=== PATIENT | female | born 1985 | race Caucasian/White ===

== ENCOUNTER 2016-09-16 01:23 | Emergency (ER) | payer MEDICAID ==
[~2016-09-16] VITALS: Ht 160 cm; Wt 71.5 kg
[2016-09-16 01:26] VITALS: Ht 160 cm; Wt 71.5 kg
[2016-09-16] MEDS ORDERED: SOD CHLORIDE 0.9% 1,000 ML IV STA (02:50)
[2016-09-16 03:41] LABS: ADD SCAN DIFF NO
[2016-09-16 03:46] LABS: BASOPHILS % 0.3 % (0.0-2.0); EOSINOPHILS # 0.1 10^3/ul (0.0-0.5); HEMATOCRIT 40.9 % (37.0-47.0); HEMOGLOBIN 13.6 g/dl (12.0-16.0); LYMPHOCYTES # 3.6 10^3/ul (0.8-2.9); LYMPHOCYTES % 40.5 % (15.0-51.0); MEAN CORPUSCULAR HEMOGLOBIN 27.1 pg (29.0-33.0); MEAN CORPUSCULAR HGB CONC 33.3 g/dl (32.0-37.0); MEAN CORPUSCULAR VOLUME 81.5 fl (82.0-101.0); MEAN PLATELET VOLUME 9.9 fl (7.4-10.4); MONOCYTE # 0.6 10^3/ul (0.3-0.9); MONOCYTES % 6.9 % (0.0-11.0); NEUTROPHIL # 4.5 10^3/ul (1.6-7.5); PLATELET COUNT 290 10^3/UL (140-415); RED BLOOD COUNT 5.02 10^6/ul (4.20-5.40); RED CELL DISTRIBUTION WIDTH 13.6 % (11.5-14.5); WHITE BLOOD COUNT 8.8 10^3/ul (4.8-10.8)
[2016-09-16 03:59] LABS: ADD UMIC YES; URINE BILIRUBIN (Dip) NEGATIVE (NEGATIVE); URINE BLOOD (Dip) 2+ (NEGATIVE); URINE COLOR LT. YELLOW (YELLOW); URINE GLUCOSE (Dip) NEGATIVE (NEGATIVE); URINE KETONES (Dip) NEGATIVE (NEGATIVE); URINE LEUKOCYTE ESTERASE (Dip) 3+ (NEGATIVE); URINE NITRITE (Dip) NEGATIVE (NEGATIVE); URINE TOTAL PROTEIN (Dip) NEGATIVE (NEGATIVE); URINE UROBILINOGEN (Dip) 0.2 E.U./dL (0.1-1.0)
[2016-09-16 04:14] LABS: SQUAMOUS EPITHELIAL CELL,UR MODERATE
[2016-09-16 04:15] LABS: BACTERIA,URINE MANY
--- NOTE | 2016-09-16 05:52 | RADRPT ---
PROCEDURE: US OB. CLINICAL INDICATION: Vaginal bleeding. patient. TECHNIQUE: Transabdominal and transvaginal views of the pelvis are available for review. COMPARISON: No prior studies are available for comparison. FINDINGS: There is a single live intrauterine gestation. [place]-rump length:5.64 cm heart rate:158 bpm Gestational sac: 5.45 cm Ultrasound estimated gestational age:12 wk 2 days. A 14 mm hypoechoic area was seen inferior to the gestational sac consistent with a small subchorioni c hemorrhage. The right ovary was not seen. The left ovary measures 3.6 x 2.2 x 2.7 cm and was unremarkable in ap pearance with color and pulse wave Doppler flow documented. There is no free fluid. IMPRESSION: Single live intrauterine with an estimated gestational age of 12 weeks and 2 days. Small subchorionic hemorrhage.. RPTAT: HLBE Physician Jenni Date Time Electronically viewed and signed by Ramona Maloney Physician on 09/16/2016 05:52 TERRI/
[2016-09-16] MEDS ORDERED: NITR-58 PO (06:13)
--- NOTE | 2016-09-20 03:37 | ERA ---
ER Documentation Chief Complaint Date/Time DATE: 09/20/16 TIME: 03:35 Chief Complaint 12 wks , vag bleeding w/ pelvic pain HPI Patient is 31-year-old female who is 12 weeks . Patient has had left lower quadrant pain has been getting worse over the past 2 weeks and says increased to 7 out of 10. Patient experienced more blood in the urine. Patient denies dysuria or abdominal pain. Patient denies vaginal discharge or bleeding. ROS All systems reviewed and are negative except as per history of present illness. Medications Home Meds Active Scripts Nitrofurantoin Monohyd Macrocr* (Macrobid*) 100 Mg Capsr, 100 MG PO BID for 10 Days, CAP Prov:ROSY HINDS PA-C 09/16/16 Allergies Allergies: Coded Allergies: No Known Allergy (Verified , 01/31/09) PMhx/Soc Medical and Surgical Hx: pt denies Medical Hx, pt denies Surgical Hx History of Surgery: No Anesthesia Reaction: No Hx Neurological Disorder: No Hx Respiratory Disorders: No Hx Cardiac Disorders: No Hx Psychiatric Problems: No Hx Miscellaneous Medical Probl: No Hx Alcohol Use: No Hx Substance Use: No Hx Tobacco Use: No Physical Exam Physical Exam Const: Well-appearing 31-year-old female who is 12 weeks in no acute distress. Head: Atraumatic Eyes: Normal Conjunctiva ENT: Normal External Ears, Nose and Mouth. Neck: Full range of motion..~ No meningismus. Resp: Clear to auscultation bilaterally Cardio: Regular rate and rhythm, no murmurs Abd: Soft, non tender, non distended. Normal bowel sounds. Fundus is appropriate height. Skin: No petechiae or rashes Back: No midline or flank tenderness Ext: No cyanosis, or edema Neur: Awake and alert Psych: Normal Mood and Affect Result Diagram: 09/16/16 0320 Results 24 hrs Laboratory Tests Test 09/16/16 03:20 White Blood Count 8.810^3/ul Red Blood Count 5.0210^6/ul Hemoglobin 13.6g/dl Hematocrit 40.9% Mean Corpuscular Volume 81.5fl Mean Corpuscular Hemoglobin 27.1pg Mean Corpuscular Hemoglobin Concent 33.3g/dl Red Cell Distribution Width 13.6% Platelet Count 05616^3/UL Mean Platelet Volume 9.9fl Neutrophils % 51.0% Lymphocytes % 40.5% Monocytes % 6.9% Eosinophils % 1.0% Basophils % 0.3% Nucleated Red Blood Cells % 0.0/100WBC Neutrophils # 4.510^3/ul Lymphocytes # 3.610^3/ul Monocytes # 0.610^3/ul Eosinophils # 0.110^3/ul Basophils # 0.010^3/ul Nucleated Red Blood Cells # 0.010^3/ul Urine Color LT. YELLOW Urine Clarity CLEAR Urine pH 5.5 Urine Specific [place] 1.025 Urine Ketones NEGATIVE Urine Nitrite NEGATIVE Urine Bilirubin NEGATIVE Urine Urobilinogen 0.2 E.U./dL Urine Leukocyte Esterase 3+ Urine Microscopic RBC 5-10/HPF Urine Microscopic WBC 10-25/HPF Urine Squamous Epithelial Cells MODERATE Urine Bacteria MANY Urine Hemoglobin 2+ Urine Glucose NEGATIVE% Urine Total Protein NEGATIVE Beta HCG, Quantitative 926543.0mIU/ml Current Medications Medications (Trade) Dose Ordered Sig/Roberto Carlos Route PRN Reason Start Time Stop Time Status Last Admin Dose Admin Sodium Chloride (NS) 1,000 ml @ 1,000 mls/hr Q1H STAT IV 09/16/16 02:50 09/16/16 03:49 DC 09/16/16 03:32 Procedures/MDM Patient is 4 weeks and complains of hematuria and possible vaginal bleeding. This reason went ahead and first trimester workup. Urine results showed infection. We will treat with Macrobid 100 mg twice a day for 10 days. Have spoke to the patient and she understands her current condition and the importance of follow-up. Patient is stable and will be discharged at this time. I have spoken to my attending and he agrees with assessment and plan. Departure Diagnosis: Primary Impression: Urinary tract infection during Qualified Code: O23.41 - Urinary tract infection during , first trimester Condition: Stable Patient Instructions: Understanding Urinary Tract Infections (UTIs) Additional Instructions: Seguimiento con Ginecl[facility] en los prximos mercado 1-3. Impresin de laboratorios incluyendo nivel de GCH beta fue dado a usted. Presentan al Gine[facility] hilaria visita de seguimiento para los valores de repeticin posible. Volver el servicio de urgencias inmediatamente si los sntomas empeoran o cambiaran. Si usted tiene alguna pregunta con respecto a medicamentos, pedir zuniga farmacutico o a nosotros antes de salir. Producirse reacciones adversas mientras est tomando leonila medicamentos, suspender el tratamiento y regresar a la lionel de emergencias inmediatamente. [place] leonila medicamentos barbra lo indique y completar el curso entero de tratamiento. ROSY HINDS PA-C September 20, 2016 03:37
== END 2016-09-16 07:00 | disposition home or self-care (01) ==
LOC: FTE 01:23
DX: O23.41 Unspecified infection of urinary tract in pregnancy, first trimester (principal); R10.2 Pelvic and perineal pain; Z3A.12 12 weeks gestation of pregnancy
CPT/HCPCS: 36415; 76801; 81001; 84702; 85025; 86900; 86901; J7030; Z7502; 81003

== ENCOUNTER 2017-02-02 21:49 | Outpatient (CLI) | payer MEDICAID ==
[~2017-02-02] VITALS: Ht 151.1 cm; Wt 78.5 kg
[~2017-02-02 21:49] MED LIST: NITR-58 PO
--- NOTE | 2017-02-02 22:47 | RADRPT ---
PROCEDURE: US biophysical profile. CLINICAL INDICATION: Decreased motion. TECHNIQUE: Multiple sonographic images of the uterus were obtained. The images were revi ewed on a PACS workstation. COMPARISON: No prior studies are available for comparison. FINDINGS: There is a single live intrauterine gestation. heart rate is 152 beats per minute. The position is cephalic. The placenta is anterior grade II with no abruption or previa. The WALTER is 8.7 cm. (Normal = 5-20 cm.) Breathing Movement: 2 Gross Body Movement: 2 Tone: 2 Qualitative Amniotic Fluid Volume: 2 TOTAL: 8 IMPRESSION: 1. The biophysical score is 8/8. RPTAT: QQ .Moise Lopez MD, MD Date Time Electronically viewed and signed by .Moise Lopez MD, on 02/02/2017 22:46 .R/
[2017-02-02] MEDS ORDERED: CALC-516 PO (23:18)
[2017-02-02] MEDS ORDERED: PREN-6 PO (23:18)
[2017-02-02 23:21] VITALS: BP 110/62; PULSE 88; RESP 18
--- NOTE | 2017-02-03 00:03 | PN ---
Triage Information Date/Time Reason for visit: DFM Weeks of Gestation 32w /Para Objective Vital Signs Date Time Temp Pulse Resp B/P Pulse Ox O2 Delivery O2 Flow Rate FiO2 02/02/17 23:21 98.6 88 18 110/62 Room Air Heart Rate Comments reactive Exam Tocometer: occasional UC Results/Medications Imaging Results BPP 8/8, WALTER 8.7cm Disposition: Discharge Assessment/Plan 31 y/o at 32 weeks with dfm -ptl precautions -repeat WALTER in 3 days -f/u with OB SUZANNE SORIA Feb 03, 2017 00:03
--- NOTE | 2017-02-03 00:19 | TRIAGE ---
OB Triage Datetime Report Generated by CPN: 02/03/2017 00:19 Datetime: 02/03/2017 00:13 Stage of : OB Triage Datetime: 02/02/2017 23:39 Labor Evaluation Monitor Mode: External Heart Rate Monitor Mode: External US Comments: New U/S monitor appliedpplied Datetime: 02/02/2017 23:30 Stage of : OB Triage Comments: U/S monitor not capturing fhts. Will change Datetime: 02/02/2017 23:26 Time of Arrival: 02/02/2017 21:42 EGA: 32.4 Arrived By: Wheelchair Arrived From: [facility] Office Chief Complaint: DFM Movement: Decreased Contractions: Denies/Absent Rupture of Membranes: Denies Vaginal Bleeding: None Vaginal Discharge: Denies Recent Sexual Intercouse: Denies Abdominal Trauma: Not Applicable Patient Complaints: Other Time Provider Notified: 02/02/2017 22:10 Provider Notified: UAJE Initial Plan: VS, EFM, BPP, AF, PO HYDRATION Datetime: 02/02/2017 23:15 Heart Rate Monitor Mode: External US Datetime: 02/02/2017 23:10 Heart Rate Monitor Mode: External US Datetime: 02/02/2017 23:08 Heart Rate Monitor Mode: External US Datetime: 02/02/2017 22:32 Stage of : OB Triage Datetime: 02/02/2017 22:27 Heart Rate Monitor Mode: External US Datetime: 02/02/2017 22:16 Stage of : OB Triage Datetime: 02/02/2017 22:01 Assessment Type: Triage Maternal Assessment Level of Consciousness: Fully Conscious DTR's/Clonus: DTRs 2+; No Clonus Headache: Denies Blurred Vision: No Respiratory Effort: Unlabored Breath Sounds, Left: Clear and Equal Breath Sounds, Right: Clear and Equal Nausea/Vomiting: Denies RUQ Epigastric Pain: Denies Lower Extremities Edema: None Degree: None Upper Extremities Edema: None Degree: None Facial Edema: None Fall Risk Assessment History of Falling: (0) No Secondary Diagnosis: (15) Yes (Annotations: GDM) Ambulatory Aid: (0) Bedrest/Nurse Assist IV Therapy: (0) No Gait: (0) Normal/Bedrest/Immobile Mental Status: (0) Oriented to Own Ability Fall Score: 15 Fall Risk Score Definition: No Risk: No action required Datetime: 02/02/2017 21:57 Stage of : OB Triage Labor Evaluation Monitor Mode: External Contraction Comments: Applied Heart Rate Monitor Mode: External US Comments: Applied
== END 2017-02-03 00:25 | disposition home or self-care (01) ==
LOC: OBT 21:49 → L-D 21:51 → OBT 02-03 00:25
PROVIDERS: ATTEND Obstetrics & Gynecology
DX: O36.8130 Decreased fetal movements, third trimester, not applicable or unspecified (principal); Z3A.32 32 weeks gestation of pregnancy
CPT/HCPCS: 76818

== ENCOUNTER 2017-02-05 13:32 | Outpatient (CLI) | payer MEDICAID ==
[~2017-02-05] VITALS: Ht 152.4 cm; Wt 79.2 kg
[~2017-02-05 13:32] MED LIST changes: +CALC-516 PO; +PREN-6 PO
[2017-02-05 13:40] VITALS: BP 119/56; PULSE 80; Ht 152.4 cm; Wt 79.2 kg
--- NOTE | 2017-02-05 14:39 | RADRPT ---
PROCEDURE: US OB biophysical profile. CLINICAL INDICATION: decreased movements TECHNIQUE: Multiple sonographic images of the pelvis were obtained. The images were reviewed on a PACS workstation. COMPARISON: US PELVIS 02/02/2017 FINDINGS: There is a single viable intrauterine gestation. Cardiac activity is present with 140 beats per min [place]. There is a vertex presentation. The placenta is anterior. There is no evidence of placental abruption. There is a normal amount of amniotic fluid with an WALTER = 11.8 cm. Biophysical profile: movement 2/2 tone 2/2. breathing 2/2 WALTER 2/2 Total 12/12 RPTAT: AA . IMPRESSION: Normal biophysical profile. . .Deon Mckeon MD, MD Date Time Electronically viewed and signed by .Deon Mckeon MD, MD on 02/05/2017 14:38 .S/
--- NOTE | 2017-02-05 18:56 | QN ---
Documentation Comment iup 33 weeks DFM vss nst reacitve us wnl a/p iup 33 weeks DFM reesoved dc home SY JENSEN MD Feb 05, 2017 18:56
--- NOTE | 2017-02-05 19:09 | TRIAGE ---
OB Triage Datetime Report Generated by CPN: 02/05/2017 19:09 Datetime: 02/05/2017 15:50 Stage of : OB Triage Datetime: 02/05/2017 15:47 Stage of : OB Triage Datetime: 02/05/2017 15:39 Labor Evaluation Frequency: 0 Monitor Mode: External Pattern: Normal: <= 5 Contractions in 10 Minutes Resting Tone [place]: Relaxed Heart Rate FHR Baseline Rate: 135 Monitor Mode: External US Variability: Moderate 6-25 bpm Accelerations: 10X10 Decelerations: None Category: Category I Pain Assessment Pain Scale: 0 Pain Presence: None/Denies Pain Type: N/A Pain Goal: 3 Pain Relief Measures: Comfort Measures Datetime: 02/05/2017 15:16 Stage of : OB Triage Datetime: 02/05/2017 14:40 Labor Evaluation Frequency: 0 Monitor Mode: External Resting Tone [place]: Relaxed Heart Rate FHR Baseline Rate: 135 Monitor Mode: External US Variability: Moderate 6-25 bpm Accelerations: 10X10 Decelerations: None Category: Category I Pain Assessment Pain Scale: 0 Pain Presence: None/Denies Pain Goal: 3 Pain Relief Measures: Comfort Measures Datetime: 02/05/2017 14:01 Stage of : OB Triage Datetime: 02/05/2017 13:37 Stage of : OB Triage Assessment Type: Triage Maternal Assessment Level of Consciousness: Fully Conscious DTR's/Clonus: DTRs 2+; No Clonus Headache: Denies Blurred Vision: No Respiratory Effort: Unlabored; Regular Rhythm; Equal Expansion Breath Sounds, Left: Clear and Equal Breath Sounds, Right: Clear and Equal Nausea/Vomiting: Denies RUQ Epigastric Pain: Denies Facial Edema: None Temperature Route: Axillary Fall Risk Assessment History of Falling: (0) No Secondary Diagnosis: (0) No Ambulatory Aid: (0) Bedrest/Nurse Assist IV Therapy: (0) No Gait: (0) Normal/Bedrest/Immobile Mental Status: (0) Oriented to Own Ability Fall Score: 0 Fall Risk Score Definition: No Risk: No action required Labor Evaluation Frequency: 0 Monitor Mode: External Resting Tone [place]: Relaxed Heart Rate FHR Baseline Rate: 140 Monitor Mode: External US Variability: Moderate 6-25 bpm Decelerations: None Category: Category I Pain Assessment Pain Scale: 0 Pain Presence: None/Denies Pain Type: N/A Pain Goal: 3 Pain Relief Measures: Comfort Measures Datetime: 02/05/2017 13:36 Time of Arrival: 02/05/2017 13:15 EGA: 33.0 Arrived By: Ambulatory Arrived From: Home Chief Complaint: F/U DFM, DENIES LEAKING, UC'S OR BLEEDING Movement: Present Contractions: Denies/Absent Rupture of Membranes: Denies Vaginal Bleeding: None Vaginal Discharge: Denies Recent Sexual Intercouse: Denies Abdominal Trauma: Not Applicable Patient Complaints: None Time Provider Notified: 02/05/2017 14:01 Provider Notified: DELSHAD Initial Plan: MONITOR, BPP/WALTER Datetime: 02/02/2017 23:30 Stage of : OB Triage Labor Evaluation Frequency: X1 Monitor Mode: External Duration (sec)2399: 50 Quality: Mild Pattern: Normal: <= 5 Contractions in 10 Minutes Resting Tone [place]: Relaxed Heart Rate FHR Baseline Rate: 140 Monitor Mode: External US Variability: Moderate 6-25 bpm Accelerations: 15X15 Decelerations: None Category: Category I Datetime: 02/02/2017 23:26 EGA: 32.4 Datetime: 02/02/2017 22:30 Stage of : OB Triage Labor Evaluation Frequency: [place] Monitor Mode: External Duration (sec)2399: 50 Quality: Mild Pattern: Normal: <= 5 Contractions in 10 Minutes Resting Tone [place]: Relaxed Heart Rate FHR Baseline Rate: 140 Monitor Mode: External US Variability: Moderate 6-25 bpm Accelerations: 15X15 Decelerations: None Category: Category I Datetime: 02/02/2017 22:01 Fall Score: 15 Fall Risk Score Definition: No Risk: No action required
== END 2017-02-05 16:00 | disposition home or self-care (01) ==
LOC: OBT 13:32 → L-D 13:32 → OBT 16:00
PROVIDERS: ATTEND Obstetrics & Gynecology
DX: O36.8130 Decreased fetal movements, third trimester, not applicable or unspecified (principal); Z3A.33 33 weeks gestation of pregnancy
CPT/HCPCS: 76818; Z7500; G0463

== ENCOUNTER 2017-02-28 21:08 | Outpatient (CLI) | payer MEDICAID ==
[~2017-02-28] VITALS: Ht 149.9 cm; Wt 59.0 kg
[~2017-02-28 21:08] MED LIST changes: -NITR-58 PO
[2017-02-28 22:10] VITALS: Ht 149.9 cm; Wt 59.0 kg
[2017-02-28 22:13] VITALS: BP 125/72; PULSE 95; RESP 18
--- NOTE | 2017-03-01 00:39 | PN ---
Triage Information Date/Time Reason for visit: DFM Weeks of Gestation 36 weeks and 2 days /Para Diabetes: gestational Diabetes management: oral agent Hypertention: none Additional information 31-year-old with IUP at 36 weeks and 2 days with care with Dr. Ruano and history of gestational diabetes A2 on oral antidiabetic medication presented with complaint of decreased movement since yesterday. Patient has been currently followed by NST/BPP in the office and NST clinic. Denies any leaking of fluid, vaginal bleeding or uterine contractions. Objective Vital Signs Date Time Temp Pulse Resp B/P Pulse Ox O2 Delivery O2 Flow Rate FiO2 02/28/17 22:13 98.2 95 18 125/72 Room Air Heart Rate: 130's Contractions: None Exam General appearance: Alert and oriented 4. Patient does not appear to be in any acute distress. Abdomen: Soft, gravid, fundal height consistent with gestational age. Extremities: No calf tenderness, no click no edema NST: Category 1 BPP: 12/12 Results/Medications Imaging Results PROCEDURE: US OB biophysical profile. CLINICAL INDICATION: decreased movements TECHNIQUE: Multiple sonographic images of the pelvis were obtained. The images were reviewed on a PACS workstation. COMPARISON: US PELVIS 02/02/2017 FINDINGS: There is a single viable intrauterine gestation. Cardiac activity is present with 140 beats per minute. There is a vertex presentation. The placenta is anterior. There is no evidence of placental abruption. There is a normal amount of amniotic fluid with an WALTER = 11.8 cm. Biophysical profile: movement 2/2 tone 2/2. breathing 2/2 WALTER 2/2 Total 12/12 RPTAT: AA . IMPRESSION: Normal biophysical profile. . Disposition: Discharge Assessment/Plan IUP at 36 weeks and 2 days Gestational diabetes A2 on oral antidiabetic medication, being followed by NST/ BPP twice a week decreased movementAntenatal testing reassuring. Patient will be discharged home with strict kick count and labor precaution and follow-up with NST clinic twice a week for testing. Patient verbalized understanding REGAN RAMOS MD Mar 01, 2017 00:39
--- NOTE | 2017-03-01 08:35 | RADRPT ---
PROCEDURE: US biophysical profile. CLINICAL INDICATION: DFM. well-being. TECHNIQUE: Multiple sonographic images of the uterus were obtained. The images were revi ewed on a PACS workstation. COMPARISON: 02/05/2017. FINDINGS: There is a single live intrauterine gestation. heart rate is 166 beats per minute. The position is cephalic. The placenta is anterior, grade 1. The WALTER is 17.4 cm. Breathing Movement: 2 Gross Body Movement: 2 Tone: 2 Qualitative Amniotic Fluid Volume: 2 TOTAL: 8 IMPRESSION: 1. Single viable intrauterine gestation. 2. Biophysical profile = 12/12. 3. WALTER = 17.4 cm. RPTAT: HFN .Sanna Bautista MD, MD Date Time Electronically viewed and signed by .Sanna Bautista MD, MD on 02/28/2017 22:58 .N/
--- NOTE | 2017-03-01 08:38 | TRIAGE ---
OB Triage Datetime Report Generated by CPN: 03/01/2017 02:05 Datetime: 03/01/2017 00:00 Stage of : OB Triage Labor Evaluation Frequency: 2-6 Monitor Mode: External Duration (sec)2399: 70-140 Quality: Mild Pattern: Normal: <= 5 Contractions in 10 Minutes Resting Tone [place]: Relaxed Heart Rate FHR Baseline Rate: 130 Monitor Mode: External US Variability: Moderate 6-25 bpm Accelerations: 15X15 Decelerations: Variable (Annotations: MILD) Category: Category II Pain Assessment Pain Scale: 4 Pain Presence: Intermittent Pain Type: Cramping Pain Location: Abdomen Pain Goal: 5 Pain Relief Measures: Comfort Measures Datetime: 02/28/2017 23:00 Stage of : OB Triage Labor Evaluation Frequency: X6 Monitor Mode: External Duration (sec)2399: 70-140 Quality: Mild Pattern: Normal: <= 5 Contractions in 10 Minutes Resting Tone [place]: Relaxed Heart Rate FHR Baseline Rate: 140 Monitor Mode: External US Variability: Moderate 6-25 bpm Accelerations: 15X15 Decelerations: None Category: Category I Pain Assessment Pain Scale: 4 Pain Presence: Intermittent Pain Type: Cramping Pain Location: Abdomen Pain Goal: 5 Pain Relief Measures: Comfort Measures Datetime: 02/28/2017 22:57 Vaginal Exam Dilatation (cms): 0.0 Effacement (%): 0 Station: -3 Exam By: MARK Cervix, Consistency: Moderate Cervix, Position: Posterior Datetime: 02/28/2017 22:17 Time of Arrival: 02/28/2017 21:02 EGA: 36.2 Arrived By: Ambulatory Arrived From: Home Chief Complaint: DEC. MOVEMENT, ONLY FELT BABY MOVE 2-3 TIMES TODAY Movement: Present Contractions: Irregular Time Contractions Began: 03/01/2017 21:00 Rupture of Membranes: Denies Vaginal Bleeding: None Vaginal Discharge: Denies Recent Sexual Intercouse: Denies Additional Patient Complaints: HAS NOTE FROM CLINIC FROM DR REDMOND FOR BPP A2DM, NST TWICE WEEKLY, NEXT NST 03/02/17, NEXT 'S APPT. 03/07/17 Time Provider Notified: 03/01/2017 21:52 Provider Notified: RACHEL Initial Plan: BPP Datetime: 02/28/2017 22:00 Stage of : OB Triage Temperature Route: Oral Labor Evaluation Frequency: X3 Monitor Mode: External Duration (sec)2399: 70-140 Quality: Mild Pattern: Normal: <= 5 Contractions in 10 Minutes Resting Tone [place]: Relaxed Heart Rate FHR Baseline Rate: 140 Monitor Mode: External US Variability: Moderate 6-25 bpm Accelerations: 15X15 Decelerations: None Pain Assessment Pain Scale: 4 Pain Presence: Intermittent Pain Type: Cramping Pain Location: Abdomen Pain Goal: 5 Pain Relief Measures: Comfort Measures Datetime: 02/28/2017 21:50 Assessment Type: Triage Maternal Assessment Level of Consciousness: Fully Conscious DTR's/Clonus: DTRs 2+; No Clonus Headache: Denies Blurred Vision: No Respiratory Effort: Unlabored; Regular Rhythm; Equal Expansion Breath Sounds, Left: Clear and Equal Breath Sounds, Right: Clear and Equal Nausea/Vomiting: Denies RUQ Epigastric Pain: Denies Lower Extremities Edema: None Upper Extremities Edema: None Facial Edema: None Fall Risk Assessment History of Falling: (0) No Secondary Diagnosis: (0) No Ambulatory Aid: (0) Bedrest/Nurse Assist IV Therapy: (0) No Gait: (0) Normal/Bedrest/Immobile Mental Status: (0) Oriented to Own Ability Fall Score: 0 Fall Risk Score Definition: No Risk: No action required Comment: PT. HAS 5-6 CASTELLANOS SPOTS ON UPPER ABD. PT. STATED FROM COOKING, OIL SPLATTERED Datetime: 02/05/2017 13:37 Fall Score: 0 Fall Risk Score Definition: No Risk: No action required Datetime: 02/05/2017 13:36 EGA: 33.0 Datetime: 02/02/2017 23:26 EGA: 32.4 Datetime: 02/02/2017 22:01 Fall Score: 15 Fall Risk Score Definition: No Risk: No action required
== END 2017-03-01 00:28 | disposition home or self-care (01) ==
LOC: OBT 21:08 → L-D 21:09 → OBT 03-01 00:28
PROVIDERS: ATTEND Obstetrics & Gynecology
DX: O24.415 Gestational diabetes mellitus in pregnancy, controlled by oral hypoglycemic drugs (principal); O62.9 Abnormality of forces of labor, unspecified; Z3A.36 36 weeks gestation of pregnancy; Z79.84 Long term (current) use of oral hypoglycemic drugs
CPT/HCPCS: 76818; Z7500; G0463

== ENCOUNTER 2017-03-13 05:00 | Inpatient (IN) | END 2017-03-15 16:05 | disposition home or self-care (01) | DRG 775 | DX: O80 Encounter for full-term uncomplicated delivery (principal); Z23 Encounter for immunization; Z37.0 Single live birth; Z3A.38 38 weeks gestation of pregnancy ==

== ENCOUNTER 2017-05-16 08:21 | Emergency (ER) | END 2017-05-16 09:49 | disposition home or self-care (01) ==

== ENCOUNTER 2018-08-14 19:48 | Inpatient (IN) | payer MEDICAID ==
[~2018-08-14] VITALS: Ht 147.3 cm; Wt 84.1 kg
[~2018-08-14 19:48] MED LIST changes: +ACYC400T2 PO; +HYDR-4011 PO; +PRED20TA PO
[2018-08-14 20:38] VITALS: Ht 147.3 cm; Wt 84.1 kg
--- NOTE | 2018-08-14 22:01 | HP ---
Date/Time of Note Date/Time of Note DATE: 08/14/18 TIME: 21:58 OB - History Hx of Present Free Text/Dictation 33-year-old 3 para 2 at 39 weeks and 2 days of gestation with estimated date of delivery August 19, 2018 Patient is a gestational diabetic A2 on metformin p.o. She presents with chief complaint of elevated blood pressures 122/87 in the clinic and 125/60 here in triage Patient denies any headache or blurry vision, she denies chest pain or shortness of breath, denies right upper quadrant pain GBS status is negative Estimated Due Date: Aug 19, 2018 : 3 Para: 2 Care: Good Care Past Family/Social History * Past Medical, Surgical, Family and Obstetric Histories reviewed from chart. OB Admission Exam Physical Exam HEENT: WNL Heart: Rhythm Normal Lungs: Clear, Equal Abdomen: WNL Extremities: Normal Reflexes: Normal Cervical Dilatation: 2cm Effacement: 75% Station: -3 Membranes: Intact Heart Rate: 140's Accelerations: Accelerations Present Decelerations: No Decelerations Varibility: Moderate Contractions on Admission: 6-10 Minutes Apart Intensity: Moderate Last 72 hourBlood Glucose Bedside Glucose - 72 Hours Test 08/14/18 21:26 Bedside Glucose 86 mg/dL (70-220) Last 72 hours Lab Results PROCEDURE: US Obstetrical, limited CLINICAL INDICATION: Contractions, diabetic, estimated weight TECHNIQUE: Multiple real-time images were acquired of the patient's maternal abdomen utilizing a curved array transducer. COMPARISON: 08/13/2018 FINDINGS: There is a single live intrauterine fetus positioned cephalic. The placenta is implanted in the fundus and is grade 1. . The amniotic fluid index measures 15.8 cm. The heart rate is 141 beats per minute. Measurements: BPD: 8.88 cm, corresponds to a age of 35 weeks 6 days Head circumference: 31.90 cm, corresponds to a age of 35 weeks 6 days Abdominal circumference: 36.21 cm, corresponds to a age of 40 weeks 1 day Femoral length: 7.69 cm, corresponds to a age of 39 weeks 2 days Aside from the femoral length, the biometry measurements were slightly less than that of the previous study. Average age by ultrasound: 37 weeks 6 days plus or minus 2 weeks 5 days Estimated weight: 3618 g plus or minus 543 g. The EFW falls at 64%. IMPRESSION: 1. Single live intrauterine fetus, cephalic presentation, unchanged. The heart rate is 141 bpm. 2. Fundal/posterior placenta, grade 1. 3. Amniotic fluid index: 15.8 cm. 4. Estimated age by ultrasound: 37 weeks 6 days plus or minus 2 weeks 5 days. The estimated weight is 3618 g. The EFW falls is 64%. The estimated date of delivery based on today's sonogram is 08/29/2018. Physician Sourav Date Time Electronically viewed and signed by Physician Sourav on 08/14/2018 23:04 RH/ CC: DARIA MCKENNA MD [id number] PROCEDURE: US Obstetrical , limited CLINICAL INDICATION: Biophysical profile for well being, contractions. TECHNIQUE: Multiple real-time images were acquired of the patient's maternal abdomen utilizing a curved array transducer. COMPARISON: 08/13/2018 FINDINGS: There is a single live intrauterine fetus in a cephalic presentation. The placenta is implanted in the fundus and is grade 1. The amniotic fluid index measures 15.8 cm. The heart rate is 141 beats per minute. Biophysical profile: Tone: 2 breathin Gross body movement: 2 Amniotic fluid: 2 Biophysical profile score: 8/8 IMPRESSION: 1. Single live intrauterine fetus, cephalic presentation, unchanged. The heart rate is 141 bpm. 2. Fundal placenta, grade 1. 3. Amniotic fluid index 15.8 cm. 4. Biophysical profile score: 8/8. Physician Sourav Date Time Electronically viewed and signed by Physician Sourav on 08/14/2018 22:57 RH/ CC: DARIA MCKENNA MD [phone] OB Assessment/Plan Reason for admission: induction of labor Plan: Other (Gestational diabetic A2 ) Induction Method: per Pitocin Protocol Copies To: CC: DARIA MCKENNA MD ; JENNIFER RAJAN MD Aug 14, 2018 22:01
[2018-08-15] MEDS ORDERED: BUTORPHANOL 2 MG INJ IV PRN
[2018-08-15] MEDS ORDERED: LIDOCAINE 1% (MPF) 30 ML INJ INJ PRN
[2018-08-15] MEDS ORDERED: MINERAL OIL LIGHT 10 ML VIAL TOP PRN
[2018-08-15] MEDS: LACTATED RINGER'S 1,000 ML IV SCH ×2 (00:37→07:51)
[2018-08-15] MEDS ORDERED: OXYTOCIN 30 UNITS/LR 500 ML IV SCH ×4 (12:28)
[2018-08-15] MEDS ORDERED: LACTATED RINGER'S 1,000 ML IV* SCH (12:28)
--- NOTE | 2018-08-15 12:28 | LDN ---
Date/Time of Note Date/Time of Note DATE: 08/15/18 TIME: 12:26 Delivery Summary Weeks of Gestation Term gestation Placenta Delivered: Spontaneously Meconium: none Episiotomy: Yes Laceration repair: Medial episiotomy repaired with 2-0 and 3-0 Vicryl Anesthesia type: Local Estimated blood loss: 250 Sponge & Needle done & correct: Yes All needle counts correct: Yes Any foreign bodies felt in the: No Infant Delivery Information Sex Infant Sex: female Apgars 1 Minute: 9 5 Minute: 9 Suctioning Nose & mouth suctioned at eliceo: Yes Delee suction performed: No Umbilical Cord Umbilical cord with: 3 Vessels Cord presentations: no nuchal cord Cord Blood was obtained: Yes Mother & Baby Disposition Disposition Baby's weight 7 pounds 7 ounces/ 3375 g Mom & Baby to Maternity; Good: Yes Baby to NICU: No Copies To: CC: DARIA MCKENNA MD ; JENNIFER RAJAN MD Aug 15, 2018 12:28
[2018-08-15] MEDS ORDERED: LANOLIN HPA 1 PKT TOP PRN ×2 (12:30→19:00)
[2018-08-15] MEDS ORDERED: SENNA/DOCUSATE NA (8.6MG/50MG) TAB PO PRN (12:30)
[2018-08-15] MEDS ORDERED: DIBUCAINE 1% 30 GM OINT TOP PRN ×2 (12:30→19:00)
[2018-08-15] MEDS ORDERED: MAGNESIUM HYDROXIDE 30ML CUP PO PRN (12:30)
[2018-08-15] MEDS ORDERED: BENZOCAINE 20% 56 ML SPRAY TOP PRN ×2 (12:30→19:00)
[2018-08-15] MEDS ORDERED: WITCH HAZEL/GLYCERIN PAD PR PRN ×2 (12:30→19:00)
[2018-08-15] MEDS ORDERED: MISOPROSTOL 200 MCG TAB PR PRN ×3 (12:30→19:00)
[2018-08-15] MEDS ORDERED: METHYLERGONOVINE 0.2 MG INJ IM PRN ×3 (12:30→19:00)
[2018-08-15] MEDS ORDERED: ONDANSETRON 4 MG INJ IV PRN (12:30)
[2018-08-15] MEDS ORDERED: ACETAMINOPHEN 325 MG TAB PO PRN ×2 (12:30)
[2018-08-15] MEDS ORDERED: CARBOPROST 250 MCG INJ IM PRN ×3 (12:30→19:00)
[2018-08-15] MEDS ORDERED: IBUPROFEN 600 MG TAB PO PRN (12:30)
[2018-08-15] MEDS ORDERED: OXYTOCIN 30 UNITS/LR 500 ML IV PRN ×3 (12:30→19:00)
[2018-08-15] MEDS ORDERED: GLUCOSE GEL 15 GRAM TUBE PO PRN ×2 (13:30)
[2018-08-15] MEDS ORDERED: GLUCAGON 1 MG INJ IM PRN (13:30)
[2018-08-15] MEDS ORDERED: DEXTROSE 50% 50 ML SYRINGE IV PRN ×2 (13:30)
[2018-08-15] MEDS ORDERED: GLUCOSE GEL 15 GRAM TUBE BUCCAL PRN (13:30)
[2018-08-15] MEDS ORDERED: metFORMIN (XR) 500 MG TAB PO SCH (14:00)
[2018-08-15] MEDS: metFORMIN (XR) 500 MG TAB PO SCH (18:32)
[2018-08-15] MEDS: LACTATED RINGER'S 1,000 ML IV* SCH (18:47)
[2018-08-15] MEDS ORDERED: HYDROCODONE/APAP (5/325) TAB PO PRN ×2 (19:00)
[2018-08-15] MEDS ORDERED: ZOLPIDEM 5 MG TAB PO PRN (19:00)
[2018-08-15] MEDS: ACCU-CHEK XX SCH (20:05)
[2018-08-15 20:15] VITALS: BP 121/70; PULSE 78; RESP 18
[2018-08-15] MEDS: SENNA/DOCUSATE NA (8.6MG/50MG) TAB PO SCH (21:00)
[2018-08-15] MEDS: MAGNESIUM HYDROXIDE 30ML CUP PO SCH (21:00)
[2018-08-16] MEDS: IBUPROFEN 600 MG TAB PO SCH ×5 (00:42→23:15)
[2018-08-16 03:15] VITALS: BP 103/68; PULSE 87; RESP 18
[2018-08-16] MEDS: LACTATED RINGER'S 1,000 ML IV* SCH ×2 (07:00→10:47)
[2018-08-16] MEDS: ACCU-CHEK XX SCH ×3 (07:30→13:50)
[2018-08-16 08:00] VITALS: BP 103/70; PULSE 90; RESP 20
[2018-08-16] MEDS: SENNA/DOCUSATE NA (8.6MG/50MG) TAB PO SCH ×2 (08:35→21:20)
[2018-08-16] MEDS: MAGNESIUM HYDROXIDE 30ML CUP PO SCH ×2 (08:36→21:20)
[2018-08-16] MEDS: metFORMIN (XR) 500 MG TAB PO SCH ×2 (08:57→18:22)
[2018-08-16 15:26] VITALS: BP 114/82; PULSE 88; RESP 18
--- NOTE | 2018-08-16 17:39 | DS ---
Date/Time of Note Date/Time of Note Home today or next day DATE: 08/16/18 TIME: 17:38 Obstetrical Discharge Record Final Diagnosis Final Diagnosis: Term delivered Other Final Diagnosis Status post vaginal delivery Vaginal Delivery Obstetrical Delivery: Spontaneous, Episiotomy, Repaired Complications Gestational Diabetes Augmentation: Yes Condition on Discharge Physical Assessment Last Vitals: See nurse's notes Voiding: Yes Bowel Movement: Yes Breast: Soft, non-tender, Filling Fundus: Firm Abdomen and Incision: Abdomen is soft with firm fundus Episiotomy: Episiotomy is healing well and perineum is clean Calf Tenderness: No Patient Condition: Good DARIA MCKENNA MD Aug 16, 2018 17:39
--- NOTE | 2018-08-16 17:41 | PD.PPDC ---
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 Provider Information Physician Information 34-year-old female who gestational diabetes had vaginal delivery Diagnosis [id number] Final Diagnosis: Zaojx1m Status post vaginal delivery Condition [id number] Patient Condition: Qqffa9t Good Diet Zpkaj0Eh Diet: Dgzlf4d Special Diet Special Diet: 2000-calorie ADA diet Activity/Restrictions [id number] Activity: Tonpe0d Normal Activity May Shower Jevkt9Vs Restrictions: Jcxqd3o Nothing in the Vagina [id number] Return to Work or School: Qmlwe4g September 30, 2018 Follow-up Follow-up with Physician: 2, 4, Week/Weeks (In clinic) Return to clinic for [id number] OB Instructions: Dfdal1s Breast Tenderness Depression Comment: Pelvic rest for 6 weeks DARIA MCKENNA MD Aug 16, 2018 17:41
[2018-08-16] MEDS ORDERED: IBUP-1542 PO (17:42)
[2018-08-16] MEDS ORDERED: METF500T3 PO (17:42)
[2018-08-16] MEDS ORDERED: KETOROLAC 30 MG INJ IV STA (19:11)
--- NOTE | 2018-08-16 19:11 | OPR ---
Operative Report Planned Procedure Procedure date Aug 16, 2018 Procedure(s) Primary delivery Performed by see signature line Leno Sewer: STACY KENNEDY MD Anesthesiologist: YOHANA SEAY MD Pre-procedure diagnosis 36 weeks gestation Cholestasis of with elevated liver enzymes Breech presentation [id number] Anesthesia Type: Webty3s spinal Post-Procedure Post-procedure diagnosis Status post primary section Findings Live Baby in transverse lie Normal-appearing right and left fallopian tubes and ovaries Estimated Blood Loss: 600 - 700 mls Specimen(s) none Grafts/Implant(s) none Complication(s) none Pt Condition post procedure: stable Disposition: PACU Procedure Description Under satisfactory anaesthesia a Pfannenstiel incision was made two fingerbr eadth above and parallel to the symphysis of pubis. Incision was extended laterally to the border of the Recti muscles on either sides. Incision was carried down with sharp and blunt dissection until fascia was reached. Anterior Recti muscle fascia was incised in mid portion and incision extended laterally to the border of skin incision. Fascia was mobilized from muscle superiorly and Recti muscles were from midline using sharp and blunt dissection. Peritoneum was visualized; Avoiding bowel and bladder it was incised . Incision was extended superiorly and inferiorly. Bladder blade was placed. Posterior peritoneum covering the lower segment of the uterus and lower segment of the uterus were incised. Incision was extended laterally to the border of Round Lig. on either sides and after guiding the vertex to where the incision baby was delivered via vertex presentation without any difficulty. Amniotic fluid appeared clear. Cord blood was obtained and cord had 3 vessels . Placenta was delivered spontaneously and appeared intact and complete. Intrauterine cavity was rubbed with a laparotomy sponge. Uterine incision was closed in 2 layers using running stitches of No1 Monocryl. Hemostasis appeared secure. Ovaries and Fallopian tubes were within normal limits. Announcing needle, lap sponge and instrument count to be correct abdomen was closed in layers as follows: Peritoneum and Recti muscles with running stitches of 2-0 Vicryl. Fascia with running stitch of No 1 PDS. Subcutaneous tissue with running stitches of 2-0 Monocryl and skin was closed using ruddy. Patient tolerated the procedure well and was transferred to [facility] in good co ndition. DARIA MCKENNA MD Aug 16, 2018 19:11
[2018-08-16] MEDS ORDERED: AZITHROMYCIN 500MG/NS (PMX) 250 ML IVPB ONE (19:30)
[2018-08-16 20:00] VITALS: BP 121/62; PULSE 74; RESP 20
[2018-08-17 03:04] VITALS: BP 112/66; PULSE 74; RESP 20
[2018-08-17] MEDS: IBUPROFEN 600 MG TAB PO SCH ×2 (05:20→11:59)
[2018-08-17 08:30] VITALS: BP 109/55; PULSE 94; RESP 18
[2018-08-17] MEDS ORDERED: VARICELLA VACCINE LIVE/PF 1,350 UNIT/0.5 ML ML SC* ONE (09:00)
[2018-08-17] MEDS ORDERED: MEASLES,MUMPS,RUBELLA VACCINE INJ SC* ONE (09:00)
[2018-08-17] MEDS: SENNA/DOCUSATE NA (8.6MG/50MG) TAB PO SCH (09:00)
[2018-08-17] MEDS ORDERED: DIPHTH/TET/ACEL PERTUSS (ADULT) 0.5 ML VIAL IM* ONE (09:00)
[2018-08-17] MEDS: MAGNESIUM HYDROXIDE 30ML CUP PO SCH (09:30)
[2018-08-17] MEDS: metFORMIN (XR) 500 MG TAB PO SCH (09:32)
[2018-08-17 15:41] VITALS: BP 131/87; PULSE 95; RESP 18
--- NOTE | 2018-08-18 18:07 | DELSUM ---
Delivery Summary A-C Datetime Report Generated by CPN: 08/18/2018 18:07 DELIVERY PERSONNEL Reconnaissance Man: Rajput, Jenn MATERNAL INFORMATION Delivery Anesthesia: None Medications in Delivery: PITOCIN Delivery QBL (ml): 250 Placenta Cultured: No Maternal Complications: None LABOR SUMMARY EDC: 08/20/2018 00:00 No. Babies in Womb: 1 Attempted: No Labor Anesthesia: None LABOR INFORMATION Reason for Induction: Not Applicable Onset of Labor: 08/15/2018 10:00 Complete Dilatation: 08/15/2018 11:31 Oxytocin: Augmentation Group B Beta Strep: Negative Antibiotics # of Doses: 0 Steroids Given: None Reason Steroids Not Administered: Not Applicable MEMBRANES Membranes Rupture Method: Artificial Rupture of Membranes: 08/15/2018 11:59 Length of Rupture (hr): 0.03 Amniotic Fluid Color: Clear Amniotic Fluid Amount: Moderate Amniotic Fluid Odor: None STAGES OF LABOR Stage 1 hr: 1 Stage 1 min: 31 Stage 2 hr: 0 Stage 2 min: 30 Stage 3 hr: 0 Stage 3 min: 4 Total Time in Labor hr: 2 Total Time in Labor min: 5 VAGINAL DELIVERY Episiotomy: Median Laceration Extension: N/A Laceration Type: Perineal Laceration Repair: Yes Initial Vag Sponge Count: 10 Final Vag Sponge Count: 10 Initial Vag Sharps Count: 1 Final Vag Sharps Count: 3 Sponge Count Correct: Yes Sharps Count Correct: Yes BABY A INFORMATION Infant Delivery Date/Time: 08/15/2018 12:01 Method of Delivery: Vaginal Born in Route : No : N/A Forceps: N/A Vacuum Extraction: N/A Shoulder Dystocia : N/A SHOULDER DYSTOCIA BABY A Delivery Date/Time: 08/15/2018 12:01 PRESENTATION/POSITION BABY A Presentation: Cephalic Cephalic Presentation: Vertex Vertex Position: Left Occipital Anterior Breech Presentation: N/A PLACENTA INFORMATION BABY A Placenta Delivery Time : 08/15/2018 12:05 Placenta Method of Delivery: Spontaneous Placenta Status: Delivered SCORES BABY A Heart Rate 1 min: >100 bpm Resp Effort 1 min: Good Cry Reflex Irritability 1 min: Cough/Sneeze/Pulls Away Muscle Tone 1 min: Active Motion Color 1 min: Body [place], Extremit Blue Resuscitation Effort 1 min: Tactile Stimulation SCORE 1 MIN: 9 Heart Rate 5 min: >100 bpm Resp Effort 5 min: Good Cry Reflex Irritability 5 min: Cough/Sneeze/Pulls Away Muscle Tone 5 min: Active Motion Color 5 min: Body [place], Extremit Blue Resuscitation Effort 5 min: Tactile Stimulation SCORE 5 MIN: 9 INFANT INFORMATION BABY A Gestational Age at Delivery: 39.2 Gestational Status: Full Term- 39- 40.6 Weeks Infant Outcome : Liveborn Infant Condition : Stable Sex: Female IDENTIFICATION/MEDS BABY A ID Band Number: [id number] ID Band Location: Right Leg; Left Arm Sensor Applied: Yes Sensor Number: [id number] Sensor Location : Cord Clamp Vitamin K Given : Not Given Erythromycin Given: Not Given WEIGHT/LENGTH BABY A Birthweight (gm): 3375 Weight (lb): 7 Infant Weight (oz): 7 Infant Length (in): 20.50 Infant Length (cm): 52.07 CORD INFORMATION BABY A No. Cord Vessels: 3 Nuchal Cord : N/A Cord Blood Taken: Yes Suction: Mouth; Nose ASSESSMENT BABY A Complications: None Physical Findings at Delivery: Within Normal Limits Infant Respirations: Appears Normal Neon Technician/ALS Called : Yes Infant Care By: RAGHU DUNCAN Transferred To: Remains with Mother
== END 2018-08-17 17:15 | disposition home or self-care (01) | DRG 807 ==
LOC: OBT 19:48 → L-D 19:49 → OBT 23:40 → PP1 08-15 16:50
PROVIDERS: ADMIT Obstetrics & Gynecology; ATTEND Obstetrics & Gynecology
PROC: 10E0XZZ Delivery of Products of Conception, External Approach (ICD-10-PCS; principal; 2018-08-15)
PROC: 0W8NXZZ Division of Female Perineum, External Approach (ICD-10-PCS; 2018-08-15)
DX: O24.425 Gestational diabetes mellitus in childbirth, controlled by oral hypoglycemic drugs (principal); Z37.0 Single live birth; Z3A.39 39 weeks gestation of pregnancy
CPT/HCPCS: 76815; 76818; 80053; 81001; 81003; 82947; 82962; 85025; 85610; 85730; 86592; 86850; 86900; 86901; 87340; 90716; 99464; G0463; J2210; J2590; J7120

== ENCOUNTER 2019-02-21 21:57 | Emergency (ER) | payer MEDICAID ==
[~2019-02-21] VITALS: Ht 152.4 cm; Wt 76.2 kg
[~2019-02-21 21:57] MED LIST changes: +ACET500C5 PO; -ACYC400T2 PO; +AZIT250T PO; +FAMO-96 PO; -HYDR-4011 PO; +HYDR26CR PR; +IBUP-1542 PO; +METF500T3 PO; +PHEN1SUP80 PR; -PRED20TA PO
[2019-02-21 22:02] VITALS: BP 126/82; PULSE 79; RESP 20; Ht 152.4 cm; Wt 76.2 kg
== END 2019-02-22 01:26 | disposition home or self-care (01) ==
LOC: FTE 21:57
DX: K64.9 Unspecified hemorrhoids (principal); Z79.84 Long term (current) use of oral hypoglycemic drugs
CPT/HCPCS: 99284